=== PATIENT | female | born 2000 | race Two or more races ===

== ENCOUNTER 2018-08-30 14:31 | Emergency (ER) | payer MEDICAID ==
[~2018-08-30] VITALS: Ht 165.1 cm; Wt 47.2 kg
[2018-08-30 15:53] VITALS: BP 103/81
[2018-08-30] MEDS ORDERED: ALBUTEROL SULF 2.5 MG/0.5ML(0.5%) NEB SOLN NEB ONE (16:00)
[2018-08-30] MEDS ORDERED: IPRATROPIUM BROM 0.5 MG/2.5ML INH SOL NEB ONE (16:00)
== END 2018-08-30 16:56 | disposition home or self-care (01) ==
LOC: ER 14:31
DX: J98.01 Acute bronchospasm (principal)
CPT/HCPCS: 71046; 93005; 94640; 99284; J7611; J7644